=== PATIENT | female | born 1965 | race Caucasian/White ===

== ENCOUNTER 2017-11-27 08:00 | Outpatient (CLI) | payer BC | END 2017-11-27 08:01 | disposition home or self-care (01) | LOC: BICMAMMO 08:00 | PROVIDERS: ATTEND Obstetrics & Gynecology | DX: Z12.31 Encounter for screening mammogram for malignant neoplasm of breast (principal) | CPT/HCPCS: 77066; G0204; G0279 ==

== ENCOUNTER 2018-10-06 11:56 | Outpatient (CLI) | payer BC ==
[2018-10-06 12:57] LABS: Hemoglobin 11.3 g/dL (12.0-16.0); Mean Corpuscular HGB CONC 30.2 g/dL (32.0-36.0); Mean Corpuscular Volume 76.4 fL (78.0-98.0); Mean Platelet Volume 8.8 fL (7.4-10.4); Platelet Count 241 thou/uL (130-400); RBC Distribution Width 14.9 % (11.5-14.5); Red Blood Cell (RBC) Count 4.92 mill/uL (4.20-5.40); White Blood Cell (WBC) Count 7.9 thou/uL (4.8-10.8)
[2018-10-06 13:15] LABS: Anion Gap 11 mmol/L (10-20); BUN (Urea Nitrogen) 11 mg/dL (9.8-20.1); Calc. Creatinine Clearance 0 mL/min (70-130); Calcium 9.3 mg/dL (7.8-10.44); Carbon Dioxide 28 mmol/L (22-29); Chloride 102 mmol/L (98-107); Estimated GFR-MDRD 79; Glucose 112 mg/dL (70-105); Potassium 3.8 mmol/L (3.5-5.1); Sodium 137 mmol/L (136-145)
--- NOTE | 2018-10-06 16:50 | EKG ---
Test Reason : Blood Pressure : / mmHG Vent. Rate : 068 BPM Atrial Rate : 068 BPM P-R Int : 148 ms QRS Dur : 086 ms QT Int : 388 ms P-R-T Axes : 013 083 033 degrees QTc Int : 412 ms Normal sinus rhythm Normal ECG No previous ECGs available Confirmed by DR. Burton LOTT ([id number]) on 10/06/2018 4:49:34 PM Referred By: DILLON Confirmed By:DR. Burton LOTT
== END 2018-10-06 11:57 | disposition home or self-care (01) ==
LOC: LABBT 11:56
PROVIDERS: ATTEND Obstetrics & Gynecology
DX: Z01.818 Encounter for other preprocedural examination (principal); R87.69 Abnormal cytological findings in specimens from other female genital organs
CPT/HCPCS: 80048; 85027; 86850; 86900; 86901; 93005; 93010

== ENCOUNTER 2018-10-07 09:18 | Day surgery (SDC) | payer BC ==
[2018-10-06 12:04] VITALS: BMI 48.6
--- NOTE | 2018-10-07 07:30 | HP ---
HISTORY OF PRESENT ILLNESS: Ms. Decker is a 53-year-old white female, has possibly been menopausal fo r several years, who presented for new patient gynecologic annual exam on 09/11/2018. At that time, she denied any gynecologic symptoms. She does have past medical histories for adult onset diabetes, chronic hypertension, obesity, and acid reflux for which she is followed by Nurse Aris Ernst. Her Pap smear at that visit had negative cervical epithelial cells and HPV screening, but it did have endometrial cells. Due to the findings of the endometrial cells, she underwent a followup transvagi nal ultrasound. At that time, her transvaginal ultrasound showed her to have a very thickened endome trial lining of 24 mm. An endometrial biopsy was then attempted at another visit and she was noted t o have a stenotic os and she was intolerant of the pain associated with dilatation. Therefore, she i s being scheduled for diagnostic hysteroscopy and D&C to further evaluate, showing endometrial cells in a postmenopausal state along with thickened endometrial lining noted on transvaginal ultrasound. PAST SURGICAL HISTORY: section. SOCIAL HISTORY: Smoking history is negative. No significant alcohol use or drug use. CURRENT MEDICATIONS: Lisinopril 20, hydrochlorothiazide 25 mg daily, metformin 500 mg 1 tablet p.o. b.i.d. with meals. PHYSICAL EXAMINATION: GENERAL: She is 5 feet and 3 inches, 275 pounds with a BMI of 48.7, blood pressure 122/72, pulse 87, respirations 18. HEENT: Within normal limits. CHEST: Clear to auscultation. HEART: Regular rate and rhythm. S1, S2 heart sounds. No murmurs, rubs, or gallops. ABDOMEN: Obese, soft, and nontender. PELVIC: Vulva and vagina had no lesions. Cervix had no visible lesions. Uterus was small, nontende r. Adnexa was nontender with no masses. ASSESSMENT: This is a 53-year-old menopausal white female with endometrial cells noted on Pap smear screening. Transvaginal ultrasound evaluation showed thickened endometrial lining of 24 mm and attem pted in office endometrial biopsy, unsuccessful due to stenotic cervix and also patient's pain intole marylin. PLAN: Proceed with diagnostic hysteroscopy, D&C for further evaluation, and thickened endometrium. Risks and benefits of procedure have been discussed in detail. She is set for surgery on 10/07.
[2018-10-07] MEDS ORDERED: Fentanyl 100 MCG/2 ML VIAL ONE (10:43)
[2018-10-07] MEDS ORDERED: Promethazine HCl 25 MG/ML VIAL ONE (12:53)
--- NOTE | 2018-10-07 12:53 | OP ---
DATE OF PROCEDURE: 10/07/2018 PREOPERATIVE DIAGNOSES: 1. A 53-year-old white female, menopausal for several years with noted endometrial cells on recent P ap smear. 2. Thickened endometrial cavity seen on transvaginal ultrasound evaluation. POSTOPERATIVE DIAGNOSES: 1. A 53-year-old white female, menopausal for several years with noted endometrial cells on recent P ap smear. 2. Thickened endometrial cavity seen on transvaginal ultrasound evaluation. PROCEDURE PERFORMED: Diagnostic hysteroscopy with D&C. SURGEON: Estrella Ford M.D. ANESTHESIA: General. ESTIMATED BLOOD LOSS: Less than 10 mL. DISTENSION MEDIA FLUID DEFFICIT: 100 mL of normal saline. PATHOLOGY: Endometrial curettings. FINDINGS: There was a fibrotic irregular appearing lesion seen in the anterior mid portion of the ut erine cavity. Otherwise, uterine cavity appeared atrophic. This area including and all the area of the uterine cavity was sampled with endometrial curettage and sent for final pathology. DISPOSITION: To the recovery room stable. DESCRIPTION OF OPERATIVE PROCEDURE: The patient previously received informed consent in regards to jamie leach. She was taken back to the operating room where she received a general anesthetic agent witho ut complications, placed in the dorsal lithotomy position with the use of James stirrups and prepped and draped in usual sterile fashion. A sidearm speculum was placed in the vagina. The anterior lip of the cervix was grasped. The uterus sounded to 7.5 cm. The cervix was then sequentially dilated t o size 16 Phelps dilator. The diagnostic 5 mm TruClear hysteroscope was then inserted into the uterin e cavity with the previously mentioned findings. Sharp curettage of the whole cavity was then perfor med and this was sent for final pathology. Re-evaluation of the cavity post scraping showed evaluati on and removal of the fibrotic lesion. Once this was confirmed, the tenaculum was then removed. Ten aculum site was noted to be hemostatic and speculum was removed. The patient was awakened from anest hesia and transferred to the recovery room in stable condition.
== END 2018-10-07 14:50 | disposition home or self-care (01) ==
LOC: SDC 09:18
PROVIDERS: ATTEND Obstetrics & Gynecology
PROC: 0UDB7ZX Extraction of Endometrium, Via Natural or Artificial Opening, Diagnostic (ICD-10-PCS; principal; 2018-10-07)
PROC: 0UJD8ZZ Inspection of Uterus and Cervix, Via Natural or Artificial Opening Endoscopic (ICD-10-PCS; principal; 2018-10-07)
DX: N85.02 Endometrial intraepithelial neoplasia [EIN] (principal); N85.8 Other specified noninflammatory disorders of uterus; N88.2 Stricture and stenosis of cervix uteri; E11.9 Type 2 diabetes mellitus without complications; I10 Essential (primary) hypertension; K21.9 Gastro-esophageal reflux disease without esophagitis; E66.9 Obesity, unspecified; Z68.42 Body mass index [BMI] 45.0-49.9, adult; Z79.84 Long term (current) use of oral hypoglycemic drugs; Z79.899 Other long term (current) drug therapy
CPT/HCPCS: 88305; 96374; J2550; J3010

== ENCOUNTER 2018-11-09 11:09 | Outpatient (CLI) | payer BC | END 2018-11-09 11:10 | disposition home or self-care (01) | LOC: BICMAMMO 11:09 | PROVIDERS: ATTEND Nurse Practitioner Family | DX: Z12.31 Encounter for screening mammogram for malignant neoplasm of breast (principal); Z80.3 Family history of malignant neoplasm of breast | CPT/HCPCS: 77063; 77067 ==

== ENCOUNTER 2018-11-13 09:54 | Outpatient (CLI) | payer BC ==
[2018-11-13 11:49] LABS: ALT (SGPT) 22 U/L (8-55); AST (SGOT) 15 U/L (5-34); Alkaline Phosphatase 88 U/L (40-150); Anion Gap 12 mmol/L (10-20); BUN (Urea Nitrogen) 14 mg/dL (9.8-20.1); Bilirubin, Total 0.3 mg/dL (0.2-1.2); Calc. Creatinine Clearance 0 mL/min (70-130); Calcium 9.4 mg/dL (7.8-10.44); Carbon Dioxide 27 mmol/L (22-29); Chloride 103 mmol/L (98-107); Estimated GFR-MDRD 86; Globulin 3.6 g/dL (2.4-3.5); Glucose 135 mg/dL (70-105); Potassium 3.7 mmol/L (3.5-5.1); Protein, Total 7.6 g/dL (6.0-8.3); Sodium 138 mmol/L (136-145)
[2018-11-13 11:57] LABS: #Eosinphils 0.1 thou/uL (0.0-0.7); #Lymphocytes 2.1 thou/uL (1.20-3.40); #Monocytes 0.4 thou/uL (0.11-0.59); #Neutrophils 4.6 thou/uL (1.40-6.50); %Basophils 0.3 % (0.0-1.0); %Eosinophils 1.3 % (0.0-10.0); %Lymphocytes 28.5 % (21.0-51.0); %Monocytes 5.8 % (0.0-10.0); Hemoglobin 11.4 g/dL (12.0-16.0); Hypochromia SLIGHT = 6-15 cells (100X) (0-5/hpf); MDiff Complete? YES; Mean Corpuscular HGB CONC 33.6 g/dL (32.0-36.0); Mean Corpuscular Hemoglobin 24.9 pg (27.0-31.0); Mean Corpuscular Volume 74.2 fL (78.0-98.0); Mean Platelet Volume 9.2 fL (7.4-10.4); Microcytosis MODERATE=15-30 cells (100X) (0-5/hpf); PLT Morphology Comment Appears Adequate; Platelet Count 199 thou/uL (130-400); Polychromasia SLIGHT = 2-3 cells (100X) (0-2/hpf); RBC Distribution Width 14.7 % (11.5-14.5); Red Blood Cell (RBC) Count 4.58 mill/uL (4.20-5.40); White Blood Cell (WBC) Count 7.2 thou/uL (4.8-10.8)
== END 2018-11-13 09:55 | disposition home or self-care (01) ==
LOC: LABBT 09:54
PROVIDERS: ATTEND Obstetrics & Gynecology
DX: Z01.818 Encounter for other preprocedural examination (principal); N85.00 Endometrial hyperplasia, unspecified; N39.3 Stress incontinence (female) (male)
CPT/HCPCS: 80053; 85025; 86850; 86900; 86901; 93005; 93010

== ENCOUNTER 2018-11-13 10:00 | Inpatient (IN) | payer BC ==
--- NOTE | 2018-11-10 14:02 | HP ---
PREOPERATIVE HISTORY AND PHYSICAL SCHEDULED DATE OF SURGERY: 11/16/2018 HISTORY OF PRESENT ILLNESS: Ms. Decker is a 53-year-old white female, G1, P1, prior section, who recently underwent a diagnostic hysteroscopy and D and C on 10/07/2018. The patient underwent the D and C for findings of endometrial cells on a recent screening Pap smear. The Pap smear was otherwise negative with negative HPV. The final pathology on the D and C specimen was significant for focal areas of atypical complex hyperplasia. There was no invasive uterine cancer noted, but the atypical findings were confirmed. Due to this fact, I have elected to proceed with definitive surgical therapy due to the high risk nature of the atypical complex hyperplasia and development of future uterine cancer. The patient also is reporting issues with loss of urine associated with coughing, sneezing, otherwise Valsalva maneuvers. No urgency related urinary incontinence is reported. She has to wear a pad daily for the incontinence issues. PAST MEDICAL HISTORY: Significant for; 1. Adult onset diabetes. 2. Chronic hypertension. 3. Obesity. 4. Acid reflux. PAST SURGICAL HISTORY: Noted section and a recent diagnostic hysteroscopy and D and C. SOCIAL HISTORY: Smoking history is negative. No significant alcohol use or drug use. CURRENT MEDICATIONS: 1. Lisinopril 20 mg daily. 2. Hydrochlorothiazide 25 mg daily. 3. Metformin 500 mg p.o. b.i.d. with meals. PHYSICAL EXAMINATION: VITAL SIGNS: She is 5 feet 3 inches, 275 pounds with a BMI of 48.7. Blood pressure is 122/72, pulse 80, and respirations 18. HEENT: Within normal limits. CHEST: Clear to auscultation. HEART: Regular rate and rhythm. S1 heart sounds. No murmurs, rubs, or gallops. ABDOMEN: Obese, soft, and nontender. Well-healed Pfannenstiel incision noted. PELVIC: Vulva and vagina had no lesions. Cervix had no lesions. Uterus was small and nontender. Adnexa, nontender with no masses. The patient had a hypermobile UV angle of 45 degrees noted with Valsalva and leak of urine was noted with Valsalva. ASSESSMENT: This is a 53-year-old menopausal woman with complex atypical hyperplasia on recent D and C specimen. The patient also is complaining of stress urinary incontinence symptoms and is desiring surgical correction for this. PLAN: Plan is to proceed with robotic total laparoscopic hysterectomy and bilateral salpingo-oophorectomy followed by an Advantage Fit TVT procedure with cystoscopy. Risks and benefits of procedure had been discussed in detail. She is set for surgery on 11/16. Job ID: [id number]
[2018-11-13 10:49] VITALS: BMI 47.8
[2018-11-16] MEDS ORDERED: Gabapentin 300 MG CAP ONE (06:28)
[2018-11-16] MEDS ORDERED: Famotidine/PF 20 mg/2ml Vial ONE (06:29)
[2018-11-16] MEDS ORDERED: CeleCOXIB 100 MG CAP ONE (06:29)
[2018-11-16] MEDS ORDERED: CEFAZOLIN 2 GM/50 ML BAG ONE (06:30)
[2018-11-16] MEDS ORDERED: Fentanyl 250 MCG/5 ML VIAL ONE (06:57)
[2018-11-16] MEDS ORDERED: Bupivacaine HCl 0.5%/Epinephrine 1:200,000/PF 30 ml Vial ONE ×2 (06:58→09:11)
[2018-11-16] MEDS ORDERED: Lidocaine 1% w/Epinephrine 1:100K 30 ML VIAL ONE (09:11)
[2018-11-16] MEDS ORDERED: Promethazine HCl 25 MG/ML VIAL SLOW IVP PRN (10:16)
[2018-11-16] MEDS ORDERED: Ondansetron HCl/PF 4 MG/2 ML Vial IVP PRN (10:16)
[2018-11-16] MEDS ORDERED: Promethazine HCl 25 MG/ML VIAL IM PRN ×2 (10:16→12:22)
[2018-11-16] MEDS ORDERED: Fentanyl 100 MCG/2 ML VIAL ONE ×2 (10:43→12:17)
[2018-11-16] MEDS ORDERED: Promethazine HCl 25 MG/ML VIAL ONE (10:44)
[2018-11-16] MEDS ORDERED: Simethicone Chewable 80 MG TAB PO PRN (12:22)
[2018-11-16] MEDS ORDERED: Ondansetron PF 4 MG/2 ML Vial IVP PRN (12:22)
[2018-11-16] MEDS ORDERED: Morphine 4 MG/ML VIAL SLOW IVP PRN (12:22)
[2018-11-16] MEDS ORDERED: diphenhydrAMINE 25 MG CAP PO PRN (12:22)
[2018-11-16] MEDS ORDERED: Bisacodyl 10 MG SUPP PR PRN (12:22)
[2018-11-16] MEDS ORDERED: Zolpidem Tartrate 5 MG TAB PO PRN (12:22)
[2018-11-16] MEDS ORDERED: traMADol HCl 50 MG TAB PO PRN ×2 (12:22)
[2018-11-16] MEDS: Ketorolac Tromethamine 30 MG/ML VIAL IVP SCH ×2 (13:12→18:33)
[2018-11-16] MEDS: Acetaminophen 1,000 MG in Premix Bag 1 BAG IVPB SCH ×2 (13:41→20:17)
[2018-11-16] MEDS: Lactated Ringer's 1,000 ML IV SCH ×2 (20:37→20:38)
--- NOTE | 2018-11-16 20:37 | OP ---
DATE OF PROCEDURE: 11/16/2018 PREOPERATIVE DIAGNOSES: 1. A 53-year-old white female with atypical complex endometrial hyperplasia. 2. Genuine stress incontinence. PROCEDURES PERFORMED: Robotic total laparoscopic hysterectomy with bilateral salpingo-oophorectomy followed by an Advantage Fit TVT procedure with cystoscopy. DIRECTOR OF MARKETING AND PROMOTIONS SURGEON: Michelle Nunez MD. ANESTHESIA: General. ESTIMATED BLOOD LOSS: 100 mL. COMPLICATIONS: None. COUNTS: Correct x2. ANTIBIOTICS: 2 g Ancef, on-call to the OR. FINDINGS: 1. Normal-appearing bilateral fallopian tubes, uterus, and ovaries. 2. Bladder was watertight to fluid distention and there was no evidence of any bladder mucosal injury visualized postprocedure. 3. Bilateral ureteral peristalsis and with the efflux of urine visualized cystoscopically postprocedure. 4. No evidence of mesh placement through the bladder wall noted postprocedure. DISPOSITION: To Recovery Room stable. DESCRIPTION OF PROCEDURE: The patient previously received informed consent in regard to surgery. Taken back to the operating room where she received a general endotracheal anesthetic agent without complications. She was then placed in the dorsal lithotomy position with the use of James stirrups. She was then prepped and draped in usual sterile fashion. Barraza catheter was placed at this time and a sidearm speculum placed in the vagina. The anterior lip of the cervix was grasped with a single-tooth tenaculum. The uterus sounded to 7.5 cm. A size 6 cm VENICE uterine manipulator with a 3.5 cm cervical cup was placed. The tenaculum and speculum were removed. Attention was then turned to the abdomen where perspective trocar sites were infiltrated with 0.5% Marcaine with epinephrine. A 12-mm supraumbilical incision was made. Veress needle was entered in to the peritoneal cavity. The patient pressure noted to be less than 5, and abdomen was insufflated the patient pressure of 18 for trocar placement. The 12-mm trocar was then placed within the supraumbilical incision and the robotic laparoscope was introduced through the trocar sleeve. Proper entry and placement was confirmed. Additional bilateral lower quadrant 8-mm trocars were placed under laparoscopic guidance along with 11-mm right upper quadrant trocar. The patient was placed in Trendelenburg position and the robot was docked in usual fashion. I proceeded to carry out the surgery from the operative console while my assistants remained at the bedside. The uterus was elevated from the pelvis. There were some omental adhesions to the anterior abdominal wall that were taken down under direct visualization with bipolar fenestrated cautery and monopolar scissors. The left fallopian tube and ovary were identified and my assistant shift supervisor grasped the fimbria of the left tube. The IP ligament was isolated, it was coagulated holding close to the ovary with bipolar fenestrated cautery. This was transected. Serial coagulation of the broad ligament hugging close to the uterus was carried out to the left round ligament was reached. It was coagulated and transected. The anterior leaf of the broad ligament was entered. The vesicouterine peritoneum was then taken down in layering technique under direct visualization sharply dissecting the bladder past the cervical vaginal angle. Intermittent distention of the bladder intraoperatively enabled us to confirm the exact position of the bladder due to the previous sections. The uterine vessels were then skeletonized on the left side of the uterus and coagulated the internal cervical os region. This was then continued and replicated on the right side of the uterus in likewise fashion. The right IP ligament was identified, it was coagulated and transected, and then serial coagulation and transection of the broad ligament again up to the round ligament was reached, which was coagulated and transected and again entering the vesicouterine peritoneum. The bladder was taken down atraumatically in a layering technique in similar fashion with again skeletonization of the right uterine vessels and coagulation internal cervical os region. Once this had been completed, the posterior colpotomy was developed starting at the 6 o'clock position to the 9 o'clock and then 6 o'clock to 3 o'clock. The anterior colpotomy was then completed from 12 o'clock to 3 o'clock and 12 o'clock to 9 o'clock, again coagulating the uterine vessels inside the cervical cup. Hemostasis of the vaginal cuff was confirmed and the specimen was delivered in the vaginal vault by my assistants. The monopolar scissor was traded in for a suzanne needle cryogenic transport driver and this allowed for me to run the vaginal cuff and cauterization of any areas of bleeding was carried out at this time. A STRATAFIX suture was then brought in by assistant shift supervisor and the vaginal cuff was closed in full-thickness starting at the right angle back to the left angle and back toward the midline with good hemostasis of the cuff line. This needle and suture were removed. The pedicles were inspected. Pelvis was irrigated and suctioned. Hemostasis was confirmed. Bilateral ureteral peristalsis was visualized. The robot was then undocked. Excess carbon dioxide gas was released from the abdomen. A deep stitch of 0 Vicryl was placed in a xagbfm-gl-gutlu stitch fashion in the fascial defect in the umbilicus region. The rest of the trocar sites was closed with 4-0 Monocryl subcuticular stitch and Dermabond. Attention was then turned to the Advantage Fit TVT procedure. The patient's vagina was removed as the uterine specimen. The Barraza bulb was palpated and the mid urethra was identified. On the abdomen just at the margin of the symphysis pubis and mid urethra, midpoint was identified and then 2 cm lateral to the midpoint on each side was marked with a marking pen for future trocar exit sites. The mid urethra was then identified. Two Allis clamps were placed superiorly and inferiorly to approximate a 1.5 cm area, where the submucosal vaginal tissue was infiltrated with 1% lidocaine with epinephrine. A 1.5 cm mid urethral vaginal mucosal incision was made with a 15 blade. The edges of the vaginal mucosa were grasped with Allis clamps and Metzenbaum scissors were utilized to tunnel submucosally under into the space of Retzius at the junction of the inferior pubic ramus and symphysis pubis bilaterally. The Barraza diversion catheter was then placed enabling us to deflect the bladder away from the site of trocar injury and this was switched out. The Advantage Fit trocar was then placed through the previously dissected tunnel on the patient's right side, going up through the tunnel and then dropping the handle down placing the trocar with the mesh through the lower abdominal wall at the previously marked sites. The end of the mesh tag was grasped with Marcelina clamp. The trocar was removed. The bladder was then deflected to the opposite side to the patient's right side as the other end, the trocar was placed in the previously dissected tunnel on the patient's left side and under the symphysis pubis dropping the handle of the trocar and hitting the previously marked site. The end of the mesh was grasped with Marcelina clamps. The Barraza deflector was removed and a 30-degree cystoscope was then placed. The bladder was inspected and there was no evidence of any mesh entry or puncture visualized and bilateral ureteral efflux of urine was visualized and noted. The cystoscope was then removed. We then placed a Stallworth scissors underneath the mid urethra region into the mesh and each side was then pulled out, making sure that the mesh was not kinked. It was loosely set, the Stallworth scissors and then the plastic tags were released and pulled through from above by my assistants. The vaginal mucosal defect was then closed with 2-0 interrupted ksfkin-hc-nazen stitches, closing the mucosa over the mesh. A Barraza catheter was placed and clear urine was draining. The vaginal cuff was intact and hemostatic. The patient was awakened from anesthesia and transferred to Recovery Room in stable condition. Job ID: [id number]
[2018-11-16] MEDS ORDERED: Ibuprofen 800 MG TAB PO SCH (21:00)
[2018-11-17] MEDS: Ketorolac Tromethamine 30 MG/ML VIAL IVP SCH ×2 (00:02→05:58)
[2018-11-17] MEDS: Acetaminophen 1,000 MG in Premix Bag 1 BAG IVPB SCH ×2 (02:24→09:17)
[2018-11-17] MEDS: Lactated Ringer's 1,000 ML IV SCH (04:56)
[2018-11-17 07:26] LABS: Mean Corpuscular HGB CONC 31.1 g/dL (32.0-36.0); Mean Corpuscular Hemoglobin 23.5 pg (27.0-31.0); Mean Corpuscular Volume 75.8 fL (78.0-98.0); Mean Platelet Volume 9.1 fL (7.4-10.4); Platelet Count 203 thou/uL (130-400); RBC Distribution Width 14.9 % (11.5-14.5); Red Blood Cell (RBC) Count 4.25 mill/uL (4.20-5.40); White Blood Cell (WBC) Count 10.4 thou/uL (4.8-10.8)
[2018-11-17 11:58] VITALS: BP 133/64; TEMP 97.6
--- NOTE | 2018-11-17 14:46 | DIS ---
DATE OF ADMISSION: 11/16/2018 DATE OF DISCHARGE: 11/17/2018 DATE OF SURGERY: 11/16/2018. DIAGNOSES: 1. Uterine endometrial complex hyperplasia with atypia. 2. Genuine stress incontinence. PROCEDURES PERFORMED: 1. Robotic total laparoscopic hysterectomy with bilateral salpingo-oophorectomy. 2. Advantage Fit TVT with cystoscopy. SUMMARY OF HOSPITAL COURSE: Ms. Decker is a 53-year-old white female with noted biopsy consistent with complex atypical hyperplasia of the endometrium. She also has urinary stress incontinence. She underwent uncomplicated robotic TLH-BSO with Advantage Fit TVT and cystoscopy on 11/16. Postoperatively, the patient has done well. She is ambulating and voiding without difficulty. Hematocrit was 32% on postop day #1. Her postvoid residuals were checked and they were all less than 50 mL, voiding adequate amounts on the morning of postop day #1. She has a followup in 2 and 6 weeks, and pathology is pending at the time of dictation. Prescription will be for tramadol 50 mg q.6 hours p.r.n. pain, fetq-dyb-tamwozg ibuprofen, and Tylenol as needed, and she is to resume her chronic medications for chronic hypertension and hyperlipidemia including metformin 500 b.i.d., and lisinopril-hydrochlorothiazide 20-12.5 mg. Job ID: [id number]
[2018-11-21] MEDS ORDERED: Ibuprofen 800 MG TAB PO SCH (09:00)
== END 2018-11-17 12:55 | disposition home or self-care (01) | DRG 742 ==
LOC: SURG A 11-16 05:44 → 3SE 11-16 12:28
PROVIDERS: ADMIT Obstetrics & Gynecology; ATTEND Obstetrics & Gynecology
PROC: 0UT94ZZ Resection of Uterus, Percutaneous Endoscopic Approach (ICD-10-PCS; principal; 2018-11-16)
PROC: 0UT74ZZ Resection of Bilateral Fallopian Tubes, Percutaneous Endoscopic Approach (ICD-10-PCS; 2018-11-16)
PROC: 0UT24ZZ Resection of Bilateral Ovaries, Percutaneous Endoscopic Approach (ICD-10-PCS; 2018-11-16)
PROC: 0TSD4ZZ Reposition Urethra, Percutaneous Endoscopic Approach (ICD-10-PCS; 2018-11-16)
PROC: 0TJB8ZZ Inspection of Bladder, Via Natural or Artificial Opening Endoscopic (ICD-10-PCS; 2018-11-16)
PROC: 8E0W4CZ Robotic Assisted Procedure of Trunk Region, Percutaneous Endoscopic Approach (ICD-10-PCS; 2018-11-16)
DX: N85.02 Endometrial intraepithelial neoplasia [EIN] (principal); Z68.42 Body mass index [BMI] 45.0-49.9, adult; N39.3 Stress incontinence (female) (male); E11.9 Type 2 diabetes mellitus without complications; Z79.84 Long term (current) use of oral hypoglycemic drugs; E66.9 Obesity, unspecified; K21.9 Gastro-esophageal reflux disease without esophagitis; Z78.0 Asymptomatic menopausal state
CPT/HCPCS: 36415; 36416; 80053; 85025; 85027; 86850; 86900; 86901; 88309; 93005; 93010; C1781; J0131; J0670; J1885; J2001; J2550; J3010; S0028

== ENCOUNTER 2018-12-08 10:23 | Outpatient (CLI) | payer BC ==
--- NOTE | 2018-12-08 13:47 | ULT ---
ULTRASOUND ABDOMEN LIMITED: (RIGHT UPPER QUADRANT) 12/08/2018 HISTORY: Epigastric abdominal pain in a 53-year-old female. FINDINGS: There is limited visualization of the intraabdominal contents due to body habitus. This includes poo r visualization of much of the liver. Hepatic echogenicity is diffusely mildly increased. It is unc ertain whether or not this represents fatty liver. The pancreas has a normal, nonspecific sonographi c appearance. There are multiple gallstones that are poorly visualized. The larger ones are greater than 1 cm in size. Gallbladder wall thickness is 3 to 4 mm. No mention of whether or not there is a sonographic Cheung sign by the wire twister. There is no hydronephrosis of the right kidney. IMPRESSION: 1. Limited visualization of structures due to body habitus. 2. Positive for cholelithiasis. LAM López POS: [facility]
== END 2018-12-08 10:24 | disposition home or self-care (01) ==
LOC: ULT 10:23
PROVIDERS: ATTEND Nurse Practitioner Family
DX: R10.13 Epigastric pain (principal); K80.20 Calculus of gallbladder without cholecystitis without obstruction
CPT/HCPCS: 76705

== ENCOUNTER 2018-12-18 02:49 | Inpatient (IN) | payer BC ==
[2018-12-18 03:18] LABS: Bilirubin Negative (Negative); Blood, Urine Moderate (Negative); Clarity Slightly Cloudy (Clear); Glucose, Urine (Dipstick) Negative (Negative); Leukocyte Small (Negative); Nitrite Negative (Negative); Protein, Urine (Dipstick) Trace mg/dL (Neg-Trace); Specific Gravity, Urine 1.025 (1.005-1.030); Urobilinogen 0.2 mg/dL (0.2-1.0)
[2018-12-18 03:19] LABS: Bacteria/HPF 1+ HPF (None Seen); Crystals/HPF None Seen HPF (Negative); Hyaline Casts/LPF NONE SEEN LPF (0-3 Hyaline); Squamous Epithelial 0-3 HPF (0-3)
[2018-12-18] MEDS ORDERED: Prochlorperazine 10 MG/2 ML VIAL ONE (03:26)
[2018-12-18] MEDS ORDERED: Morphine 4 MG/ML Carpuject ONE (03:26)
[2018-12-18 03:36] LABS: #Basophils 0.1 thou/uL (0.0-0.2); #Eosinphils 0.1 thou/uL (0.0-0.7); #Lymphocytes 1.8 thou/uL (1.20-3.40); #Monocytes 0.4 thou/uL (0.11-0.59); #Neutrophils 5.3 thou/uL (1.40-6.50); %Basophils 0.8 % (0.0-1.0); %Lymphocytes 23.5 % (21.0-51.0); %Monocytes 5.6 % (0.0-10.0); %Neutrophils 69.2 % (42.0-75.0); Hemoglobin 11.5 g/dL (12.0-16.0); MDiff Complete? YES; Mean Corpuscular HGB CONC 32.1 g/dL (32.0-36.0); Mean Corpuscular Hemoglobin 23.5 pg (27.0-31.0); Mean Corpuscular Volume 73.2 fL (78.0-98.0); Mean Platelet Volume 8.9 fL (7.4-10.4); Microcytosis SLIGHT = 6-15 cells (100X) (0-5/hpf); Platelet Count 232 thou/uL (130-400); RBC Distribution Width 15.2 % (11.5-14.5); Red Blood Cell (RBC) Count 4.88 mill/uL (4.20-5.40); White Blood Cell (WBC) Count 7.6 thou/uL (4.8-10.8)
[2018-12-18 03:46] LABS: ALT (SGPT) 36 U/L (8-55); Albumin 4.1 g/dL (3.5-5.0); Alkaline Phosphatase 84 U/L (40-150); Anion Gap 17 mmol/L (10-20); BUN (Urea Nitrogen) 19 mg/dL (9.8-20.1); Bilirubin, Total 0.4 mg/dL (0.2-1.2); Calc. Creatinine Clearance 0 mL/min (70-130); Calcium 9.6 mg/dL (7.8-10.44); Carbon Dioxide 21 mmol/L (22-29); Chloride 102 mmol/L (98-107); Estimated GFR-MDRD 64; Globulin 3.8 g/dL (2.4-3.5); Glucose 182 mg/dL (70-105); Lipase 31 U/L (8-78); Potassium 3.8 mmol/L (3.5-5.1); Protein, Total 7.9 g/dL (6.0-8.3); Sodium 136 mmol/L (136-145)
[2018-12-18 03:48] LABS: AST (SGOT) 29 U/L (5-34)
[2018-12-18] MEDS ORDERED: Ondansetron PF 4 MG/2 ML Vial ONE ×2 (04:46→16:21)
[2018-12-18] MEDS ORDERED: Piperacillin/Tazobactam 3.375 GM VIAL ONE (05:10)
[2018-12-18] MEDS ORDERED: Sodium Chloride 0.9% 100 ML ONE (05:12)
[2018-12-18] MEDS ORDERED: Ondansetron ODT 4 MG TAB PO PRN (06:11)
[2018-12-18] MEDS ORDERED: Ondansetron PF 4 MG/2 ML Vial IVP PRN ×2 (06:11→15:33)
--- NOTE | 2018-12-18 08:23 | ULT ---
PRELIMINARY REPORT/[facility]/EMERGENTY AFTER-HOURS PROCEDURE US Abdomen Limited, Right Upper Quadrant EXAM DATE/TIME: 12/18/2018 3:50 AM CLINICAL HISTORY: 53 years old, female; Pain; Abdominal pain; Other: Epigastric pain that radiates to back TECHNIQUE: Real-time ultrasound of the abdomen with image documentation. Examination was focused on the right up per quadrant. COMPARISON: No relevant prior studies available. FINDINGS: Liver: Hepatic steatosis. Gallbladder: Cholelithiasis, including a nonmobile stone at the neck. Gallbladder bolivar not optimally visualized on this study; however, there is suggestion of mild wall thickening. No pericholecystic f luid. Sonographic Cheung's sign is positive. Common bile duct: Normal. No stones. No dilation. Pancreas: Visualized pancreas is unremarkable. Right kidney: Normal. No mass. No hydronephrosis. IMPRESSION: Cholelithiasis, including a nonmobile stone at the neck suggestion of mild gallbladder wall thickenin g and positive sonographic Cheung sign, compatible with acute cholecystitis Thank you for allowing us to participate in the care of your patient. Dictated and Authenticated by: Olivier Garcia MD 12/18/2018 4:21 AM Central Time ([place] & [place]) FINAL REPORT SONOGRAM RIGHT UPPER QUADRANT: DATE: 12/18/2018. TIME: Performed on a emergency basis at 0351 hours. HISTORY: Right upper quadrant pain. FINDINGS: Agree with the preliminary report by Dr. Garcia from [facility]. Cholelithiasis is confirmed . Positive sonographic Cheung's sign and gallbladder wall thickening are evident of acute cholecysti tis. Common duct is not dilated. POS: [facility]
[2018-12-18] MEDS: Sodium Chloride 0.9% 1,000 ML IV SCH ×3 (08:41→19:50)
[2018-12-18 08:43] VITALS: BMI 46.0
--- NOTE | 2018-12-18 09:38 | HP ---
CHIEF COMPLAINT: Right upper quadrant abdominal pain. HISTORY: The patient is a 53-year-old female, who has a several month history of right upper quadrant pain, intermittent in nature. Ultrasound showed cholelithiasis. She has seen Dr. Hoffman for anticipated laparoscopic cholecystectomy; however, last night, she had a severe episode and came to the emergency room with nausea, vomiting, and pain radiating to the back. PAST MEDICAL HISTORY: Significant for morbid obesity, diabetes mellitus, and hypertension. PAST SURGICAL HISTORY: About 30 days ago she had a laparoscopic assisted hysterectomy for endometriosis. MEDICATIONS: 1. Metformin 1000 mg daily. 2. Lisinopril 20 mg daily. 3. Hydrochlorothiazide. ALLERGIES: NO KNOWN DRUG ALLERGIES. FAMILY HISTORY: Noncontributory. SOCIAL HISTORY: She is . 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 No tobacco. No alcohol. PHYSICAL EXAMINATION: VITAL SIGNS: Temperature 97.7, pulse is 92, blood pressure 116/68. GENERAL: She is a morbidly obese female, awake, alert, does not appear to be in any distress. HEENT: There is no jaundice. LUNGS: Clear. HEART: Regular rate and rhythm. ABDOMEN: Obese and soft. She has really no significant tenderness. She has some healing laparoscopic incisions at the umbilicus and bilateral at that same level. EXTREMITIES: Unremarkable. LABORATORY DATA: Her white count is 7.6, hemoglobin and hematocrit of 11 and 35, platelet count of 232. Electrolytes are fine. Elevated glucose at 182. Liver function tests normal. Urinalysis showed 11 to 20 red cells, 7 to 10 white cells. They repeated the ultrasound. The ultrasound showed cholelithiasis with an impacted stone at the neck with some mild gallbladder wall thickening and a positive sonographic Cheung's, consistent with acute cholecystitis. ASSESSMENT: Acute cholecystitis. PLAN: Laparoscopic cholecystectomy. CONSENT: I have discussed the planned procedure as well as risk of bleeding, infection, injury to bile duct and bowel, need to open. She understands and gives informed consent. Job ID: [id number]
[2018-12-18] MEDS ORDERED: cefOXitin Sodium/Dextrose,Iso 2 GM in Premix Bag 1 BAG IVPB SCH (09:45)
[2018-12-18] MEDS ORDERED: Bupivacaine HCl 0.25%/Epi 0.0005/PF 10 ML VIAL FS ONE ×2 (14:21→14:28)
[2018-12-18] MEDS ORDERED: Fentanyl 100 MCG/2 ML VIAL ONE ×2 (14:32→15:49)
[2018-12-18] MEDS ORDERED: Famotidine/PF 20 mg/2ml Vial ONE (14:32)
[2018-12-18] MEDS ORDERED: Ondansetron HCl/PF 4 MG/2 ML Vial IVP PRN (15:09)
[2018-12-18] MEDS ORDERED: Promethazine HCl 25 MG/ML VIAL SLOW IVP PRN (15:09)
[2018-12-18] MEDS ORDERED: Promethazine HCl 25 MG/ML VIAL IM PRN ×2 (15:09→15:33)
[2018-12-18] MEDS ORDERED: Meperidine HCl/PF 25 MG/ML VIAL SLOW IVP PRN (15:09)
[2018-12-18] MEDS ORDERED: Calcium Carbonate 500 MG ChewTAB PO PRN (15:33)
[2018-12-18] MEDS ORDERED: Dextrose 50% Abboject 50 ML SYRINGE SLOW IVP PRN (15:33)
[2018-12-18] MEDS ORDERED: Mag-Al 1200 mg/1200 mg/30 ML UDCUP PO PRN (15:33)
[2018-12-18] MEDS ORDERED: hydrALAZINE 20 MG/ML VIAL SLOW IVP PRN (15:33)
[2018-12-18] MEDS ORDERED: Morphine 2 MG/ML SYRINGE SLOW IVP PRN (15:33)
[2018-12-18] MEDS ORDERED: HYDROcodone/Acetaminophen 10/325 mg Tablet PO PRN ×2 (15:33)
[2018-12-18] MEDS ORDERED: Dextrose 5% in Water 1,000 ML IV PRN (15:33)
[2018-12-18] MEDS ORDERED: HumaLOG 300 UNITS/3 ML VIAL SC PRN (15:33)
[2018-12-18] MEDS ORDERED: Morphine 4 MG/ML VIAL SLOW IVP PRN (15:33)
[2018-12-18] MEDS ORDERED: PROPOFOL 200 MG/20 ML VIAL ONE (16:21)
[2018-12-18] MEDS ORDERED: Dexamethasone 20 MG/5 ML VIAL ONE (16:21)
[2018-12-18] MEDS ORDERED: Ketorolac Tromethamine 30 MG/ML VIAL ONE (16:21)
[2018-12-18] MEDS ORDERED: Rocuronium Bromide 10 MG/ML (10ML VIAL) ONE (16:21)
[2018-12-18] MEDS ORDERED: Glycopyrrolate 0.2 MG/ML 5 ML SYRINGE ONE (16:21)
[2018-12-18] MEDS ORDERED: Lidocaine 1% PF 5 ML VIAL ONE (16:21)
--- NOTE | 2018-12-18 17:42 | OP ---
DATE OF PROCEDURE: 12/18/2018 PREOPERATIVE DIAGNOSIS: Acute cholecystitis. PROCEDURE PERFORMED: Laparoscopic cholecystectomy. INDICATIONS: The patient is a 53-year-old female, who has been having episodic right upper quadrant pain, admitted with much worse episode. Ultrasound showed cholelithiasis with thickened gallbladder wall. FINDINGS: Large stones, small caliber duct. DESCRIPTION OF PROCEDURE: After informed consent was obtained, the patient was taken to the operating room, given general endotracheal anesthesia, placed in supine position. Abdomen was prepped and draped in usual fashion. Local anesthesia infiltrated subcutaneously and deep. A supraumbilical incision was performed. Subcu divided sharply. The fascia was grasped with two stay sutures of 0 Vicryl placed in each side of midline. Midline incised. Digital palpation revealed no local adhesions. A blunt 10/12 mm trocar inserted. Pneumoperitoneum was created to a pressure of 15 mmHg and under direct vision, three 5-mm ports were placed subcostally. The gallbladder was grasped and advanced superiorly. The peritoneum lysed distally to the dissect out the cystic duct, artery, and critical view. These were triply ligated and divided with hemoclips. The gallbladder removed from its fossa utilizing electrocautery, placed in endosac, removed from the abdomen in the endosac. Hemostasis assured. Trocars and retractors removed. The fascia was closed with interrupted 0 Vicryl suture. The skin closed with interrupted 4-0 Rapide. Dermabond applied. The patient tolerated the procedure well, transferred to Recovery in good condition. Sponge and needle count verified correct x2. Job ID: [id number]
[2018-12-18] MEDS ORDERED: Ketorolac Tromethamine 30 MG/ML VIAL IVP SCH (18:00)
[2018-12-18] MEDS: Famotidine/PF 20 mg/2ml Vial SLOW IVP SCH (20:50)
[2018-12-18] MEDS: Ketorolac Tromethamine 30 MG/ML VIAL IVP SCH (20:50)
[2018-12-18] MEDS: Famotidine 20 MG TAB PO SCH (21:07)
[2018-12-19] MEDS: Sodium Chloride 0.9% 1,000 ML IV SCH ×2 (02:31→08:19)
[2018-12-19] MEDS: Ketorolac Tromethamine 30 MG/ML VIAL IVP SCH ×2 (02:57→08:23)
[2018-12-19 06:56] LABS: #Lymphocytes 1.3 thou/uL (1.20-3.40); #Monocytes 0.4 thou/uL (0.11-0.59); #Neutrophils 7.2 thou/uL (1.40-6.50); %Eosinophils 0.1 % (0.0-10.0); %Lymphocytes 14.2 % (21.0-51.0); %Monocytes 4.5 % (0.0-10.0); %Neutrophils 81.2 % (42.0-75.0); Hemoglobin 9.6 g/dL (12.0-16.0); Mean Corpuscular HGB CONC 31.6 g/dL (32.0-36.0); Mean Corpuscular Hemoglobin 24.1 pg (27.0-31.0); Mean Corpuscular Volume 76.4 fL (78.0-98.0); Mean Platelet Volume 8.9 fL (7.4-10.4); Platelet Count 192 thou/uL (130-400); RBC Distribution Width 14.8 % (11.5-14.5); Red Blood Cell (RBC) Count 3.98 mill/uL (4.20-5.40); White Blood Cell (WBC) Count 8.9 thou/uL (4.8-10.8)
[2018-12-19 07:09] LABS: ALT (SGPT) 49 U/L (8-55); AST (SGOT) 37 U/L (5-34); Albumin 3.5 g/dL (3.5-5.0); Alkaline Phosphatase 71 U/L (40-150); Anion Gap 12 mmol/L (10-20); BUN (Urea Nitrogen) 8 mg/dL (9.8-20.1); Bilirubin, Total 0.4 mg/dL (0.2-1.2); Calc. Creatinine Clearance 173 mL/min (70-130); Calcium 8.6 mg/dL (7.8-10.44); Carbon Dioxide 23 mmol/L (22-29); Chloride 109 mmol/L (98-107); Estimated GFR-MDRD 86; Globulin 2.8 g/dL (2.4-3.5); Glucose 132 mg/dL (70-105); Protein, Total 6.3 g/dL (6.0-8.3); Sodium 140 mmol/L (136-145)
[2018-12-19] MEDS: Famotidine 20 MG TAB PO SCH (08:22)
[2018-12-19] MEDS: Famotidine/PF 20 mg/2ml Vial SLOW IVP SCH (08:28)
[2018-12-19] MEDS ORDERED: Enoxaparin Sodium 40 MG/0.4 ML SYRINGE SC SCH (09:00)
--- NOTE | 2018-12-19 11:41 | PRG ---
DATE OF SERVICE: 12/19/2018 SUBJECTIVE: Antoinette Decker is doing well today. She is status last laparoscopic cholecystectomy. She is tolerating her diet. She has ambulated. OBJECTIVE: VITAL SIGNS: Temperature 98.1 degrees, pulse 79, blood pressure 153/84. LUNGS: Clear to auscultation. CARDIAC: Regular rate and rhythm without murmur or gallop. ABDOMEN: Soft, nontender. Surgical wounds well healed. LABORATORY DATA: CBC; hemoglobin 9.6, white count 8.9. Liver function tests are normal this morning. ASSESSMENT AND PLAN: Status post laparoscopic cholecystectomy, doing well. We would plan discharge home. Dr. Wall has provided Brush 10/325 p.r.n. pain. I have advised her to take Tylenol, Advil as able. No use of Brush 10 is needed. He also prescribed Zofran #10 q.4 hours p.r.n. nausea. The patient will avoid lifting over 25 to 30 pounds for 4 weeks. She will follow up with Dr. Wall's office. Job ID: [id number]
--- NOTE | 2018-12-19 11:46 | DIS ---
DATE OF ADMISSION: 12/18/2018 DATE OF DISCHARGE: 12/19/2018 DISCHARGE DIAGNOSES: Cholecystitis, cholelithiasis. PROCEDURES: Laparoscopic video cholecystectomy after an emergency room ultrasound. HISTORY: A 53-year-old female with 1-month history of right upper quadrant pain. Ultrasound reveals cholelithiasis. She saw Dr. Hoffman for a laparoscopic cholecystectomy. However, she presented with emergency room and was admitted while Dr. Mirza was on-call and the patient underwent laparoscopic video cholecystectomy. Observed overnight, tolerated diet and discharged home. To resume her home medication of metformin, lisinopril, and hydrochlorothiazide. Follow up with Dr. Wall in 2 to 3 weeks. Job ID: [id number]
[2018-12-19 11:50] VITALS: BP 133/75; TEMP 98
== END 2018-12-19 11:50 | disposition home or self-care (01) | DRG 418 ==
LOC: SCSER 02:49 → SURG A 04:35
PROVIDERS: ADMIT Surgery; ATTEND Surgery
PROC: 0FT44ZZ Resection of Gallbladder, Percutaneous Endoscopic Approach (ICD-10-PCS; principal; 2018-12-18)
DX: K80.00 Calculus of gallbladder with acute cholecystitis without obstruction (principal); Z68.42 Body mass index [BMI] 45.0-49.9, adult; E66.01 Morbid (severe) obesity due to excess calories; E11.9 Type 2 diabetes mellitus without complications; I10 Essential (primary) hypertension; Z79.84 Long term (current) use of oral hypoglycemic drugs; Z79.899 Other long term (current) drug therapy; Z87.891 Personal history of nicotine dependence
CPT/HCPCS: 36415; 76705; 80053; 81003; 81015; 83690; 85025; 86850; 86900; 86901; 88304; 96365; 96366; 96375; J0131; J0780; J1100; J1885; J2001; J2270; J2405; J2543; J2704; J3010; J7050; S0028

== ENCOUNTER 2018-12-31 14:23 | Outpatient (CLI) | payer BC ==
--- NOTE | 2018-12-31 15:36 | RAD ---
CHEST TWO VIEWS: 12/31/18 HISTORY: Endometrial cancer. FINDINGS: The cardiac silhouette and pulmonary vasculature are unremarkable. Mediastinum is midline. No conflue nt air space consolidation, pneumothorax, or pleural fluid. IMPRESSION: No active cardiopulmonary abnormalities are demonstrated. POS: [facility]
== END 2018-12-31 14:24 | disposition home or self-care (01) ==
LOC: BICRAD 14:23
PROVIDERS: ATTEND Obstetrics & Gynecology Gynecologic Oncology
DX: C54.1 Malignant neoplasm of endometrium (principal)
CPT/HCPCS: 71046

== ENCOUNTER 2019-11-10 08:54 | Outpatient (CLI) | payer BC ==
--- NOTE | 2019-11-10 10:01 | MMO ---
Bilateral MAMMO Bilat Screen [facility]. CLINICAL HISTORY: Patient is 54 years old and is seen for screening. The patient has the following family history of breast cancer: maternal grandmother. The patient has no personal history of cancer. VIEWS: The views performed were: bilateral craniocaudal with tomosynthesis and bilateral mediolateral oblique with tomosynthesis. FILMS COMPARED: The present examination has been compared to prior imaging studies performed at [facility] on 10/30/2015, 11/06/2016, 11/27/2017 and 11/09/2018. This study has been interpreted with the assistance of computer-aided detection. MAMMOGRAM FINDINGS: The breasts are almost entirely fat. There are no suspicious masses, suspicious calcifications, or new areas of architectural distortion. IMPRESSION: THERE IS NO MAMMOGRAPHIC EVIDENCE OF MALIGNANCY. A ROUTINE FOLLOW-UP MAMMOGRAM IN 1 YEAR IS RECOMMENDED. THE RESULTS OF THIS EXAM WERE SENT TO THE PATIENT. ACR BI-RADS Category 1 - Negative MAMMOGRAPHY NOTE: 1. A negative mammogram report should not delay a biopsy if a dominant of clinically suspicious mass is present. 2. Approximately 10% to 15% of breast cancers are not detected by mammography. 3. Adenosis and dense breasts may obscure an underlying neoplasm. Reported by: BERENICE PATRICK MD Electonically Signed: [id number]
== END 2019-11-10 08:55 | disposition home or self-care (01) ==
LOC: BICMAMMO 08:54
PROVIDERS: ATTEND Obstetrics & Gynecology
DX: Z12.31 Encounter for screening mammogram for malignant neoplasm of breast (principal)
CPT/HCPCS: 77063; 77067

== ENCOUNTER 2020-02-03 09:58 | Outpatient (CLI) | payer BC ==
--- NOTE | 2020-02-03 11:35 | RAD ---
RADIOGRAPH CHEST 2 VIEWS: DATE: 02/03/2020 HISTORY: 54-year-old female with: Personal history of malignant neoplasm of uterine body. Surveillance study. FINDINGS: The lungs are clear. The cardiomediastinal silhouette and hilar shadows are normal. There is no pleur al effusion. The osseous structures appear normal. There is no pneumothorax. IMPRESSION: Normal. jn [] POS: [facility]
== END 2020-02-03 09:59 | disposition home or self-care (01) ==
LOC: BICRAD 09:58
PROVIDERS: ATTEND Obstetrics & Gynecology
DX: Z08 Encounter for follow-up examination after completed treatment for malignant neoplasm (principal); Z85.42 Personal history of malignant neoplasm of other parts of uterus
CPT/HCPCS: 71046

== ENCOUNTER 2022-06-06 11:43 | Outpatient (CLI) | payer BC ==
[2022-06-06 12:46] LABS: #Eosinphils 0.1 10x3/uL (0.0-0.5); #Monocytes 0.4 10x3/uL (0.0-1.1); #Neutrophils 3.7 10x3/uL (1.5-8.4); %Basophils 0.3 % (0.0-2.0); %Lymphocytes 30.1 % (18.0-47.0); %Monocytes 6.2 % (0.0-10.0); %Neutrophils 62.2 % (40.0-75.0); Hemoglobin 14.2 g/dL (12.0-15.5); Mean Corpuscular HGB CONC 34.9 g/dL (32.0-36.0); Mean Corpuscular Hemoglobin 29.4 pg (27.0-33.0); Mean Corpuscular Volume 84.3 fl (81.6-98.3); Mean Platelet Volume 10.9 fl (7.4-10.4); Platelet Count 217 10x3/uL (150-450); RBC Distribution Width 13.1 % (11.5-14.5); Red Blood Cell (RBC) Count 4.83 10x6/uL (3.90-5.03)
[2022-06-06 13:12] LABS: ALT (SGPT) 41 U/L (8-55); AST (SGOT) 23 U/L (5-34); Albumin 4.3 g/dL (3.5-5.0); Alkaline Phosphatase 69 U/L (40-110); Anion Gap 14 mmol/L (10-20); BUN (Urea Nitrogen) 13 mg/dL (9.8-20.1); Bilirubin, Total 0.5 mg/dL (0.2-1.2); Calc. Creatinine Clearance 0 mL/min (70-130); Calcium 9.3 mg/dL (7.8-10.44); Carbon Dioxide 27 mmol/L (22-29); Chloride 103 mmol/L (98-107); Estimated GFR 99; Glucose 134 mg/dL (70-105); Potassium 3.7 mmol/L (3.5-5.1); Protein, Total 7.3 g/dL (6.0-8.3); Sodium 140 mmol/L (136-145)
== END 2022-06-06 11:44 | disposition home or self-care (01) ==
LOC: LABBT 11:43
PROVIDERS: ATTEND Surgery
DX: Z01.818 Encounter for other preprocedural examination (principal); C50.912 Malignant neoplasm of unspecified site of left female breast
CPT/HCPCS: 80053; 85025; 93005; 93010

== ENCOUNTER 2022-06-11 06:12 | Day surgery (SDC) | payer BC ==
[2022-06-11] MEDS ORDERED: Lidocaine 2% PF 5 ML VIAL ONE (11:22)
[2022-06-11] MEDS ORDERED: Bupivacaine PF 0.5% 30 ML VIAL ONE (11:22)
[2022-06-11] MEDS ORDERED: Lidocaine 1% w/Epinephrine 1:100K 20 ML VIAL ONE (11:22)
[2022-06-11] MEDS ORDERED: Isosulfan Blue 50 MG/5 ML VIAL ONE (11:22)
[2022-06-11] MEDS ORDERED: Promethazine HCl 25 MG/ML VIAL ONE ×2 (12:15→14:34)
[2022-06-11] MEDS ORDERED: fentaNYL Citrate/PF 100 MCG/2 ML SYRINGE ONE (12:15)
[2022-06-11] MEDS ORDERED: CEFAZOLIN 2 GM VIAL ONE (12:16)
[2022-06-11] MEDS ORDERED: Sodium Chloride 0.9% 100 ML ONE (12:16)
[2022-06-11] MEDS ORDERED: Ketorolac Tromethamine 30 MG/ML VIAL ONE (12:26)
[2022-06-11] MEDS ORDERED: Lidocaine 1% PF 5 ML VIAL ONE (12:26)
[2022-06-11] MEDS ORDERED: Ondansetron PF 4 MG/2 ML Vial ONE ×2 (12:26→14:17)
[2022-06-11] MEDS ORDERED: PROPOFOL 200 MG/20 ML VIAL ONE (12:26)
[2022-06-11] MEDS ORDERED: Fentanyl 100 MCG/2 ML VIAL ONE (14:17)
[2022-06-11] MEDS ORDERED: Midazolam HCl 2 mg/2 ml Vial ONE (15:32)
[2022-06-11] MEDS ORDERED: Dexamethasone 4 mg/ml Vial ONE (15:32)
[2022-06-11] MEDS ORDERED: HYDROcodone/Acetaminophen 5/325 mg Tablet ONE (16:38)
== END 2022-06-11 17:06 | disposition home or self-care (01) ==
LOC: NM 06:12
PROVIDERS: ATTEND Surgery
PROC: 07B60ZX Excision of Left Axillary Lymphatic, Open Approach, Diagnostic (ICD-10-PCS; principal; 2022-06-11)
PROC: 0HBU0ZZ Excision of Left Breast, Open Approach (ICD-10-PCS; principal; 2022-06-11)
DX: C50.412 Malignant neoplasm of upper-outer quadrant of left female breast (principal); E11.9 Type 2 diabetes mellitus without complications; I10 Essential (primary) hypertension; E78.5 Hyperlipidemia, unspecified; K21.9 Gastro-esophageal reflux disease without esophagitis; F17.290 Nicotine dependence, other tobacco product, uncomplicated; E66.01 Morbid (severe) obesity due to excess calories; Z68.41 Body mass index [BMI] 40.0-44.9, adult; Z17.0 Estrogen receptor positive status [ER+]; Z79.84 Long term (current) use of oral hypoglycemic drugs; Z79.899 Other long term (current) drug therapy; Z88.5 Allergy status to narcotic agent
CPT/HCPCS: 19281; 76098; 78195; 88307; A9541; J0690; J1100; J1885; J2001; J2250; J2405; J2550; J2704; J3010; J3490; Q9968; S0020

== ENCOUNTER 2022-07-16 12:30 | Outpatient (CLI) | payer BC ==
[2022-07-16 15:45] LABS: #Eosinphils 0.1 10x3/uL (0.0-0.5); #Monocytes 0.5 10x3/uL (0.0-1.1); #Neutrophils 3.5 10x3/uL (1.5-8.4); %Basophils 0.5 % (0.0-2.0); %Eosinophils 1.2 % (0.0-6.0); %Lymphocytes 36.2 % (18.0-47.0); %Neutrophils 54.9 % (40.0-75.0); Hemoglobin 13.9 g/dL (12.0-15.5); Mean Corpuscular HGB CONC 34.5 g/dL (32.0-36.0); Mean Corpuscular Hemoglobin 29.5 pg (27.0-33.0); Mean Corpuscular Volume 85.6 fl (81.6-98.3); Mean Platelet Volume 11.4 fl (7.4-10.4); Platelet Count 198 10x3/uL (150-450); RBC Distribution Width 12.9 % (11.5-14.5); Red Blood Cell (RBC) Count 4.71 10x6/uL (3.90-5.03); White Blood Cell (WBC) Count 6.4 10x3/uL (3.5-10.5)
[2022-07-16 16:13] LABS: ALT (SGPT) 33 U/L (8-55); AST (SGOT) 22 U/L (5-34); Albumin 4.3 g/dL (3.5-5.0); Alkaline Phosphatase 72 U/L (40-110); Anion Gap 14 mmol/L (10-20); BUN (Urea Nitrogen) 15 mg/dL (9.8-20.1); Bilirubin, Total 0.5 mg/dL (0.2-1.2); Calc. Creatinine Clearance 0 mL/min (70-130); Calcium 9.4 mg/dL (7.8-10.44); Carbon Dioxide 29 mmol/L (22-29); Chloride 102 mmol/L (98-107); Estimated GFR 100; Globulin 2.9 g/dL (2.4-3.5); Glucose 117 mg/dL (70-105); Potassium 4.1 mmol/L (3.5-5.1); Protein, Total 7.2 g/dL (6.0-8.3); Sodium 141 mmol/L (136-145)
== END 2022-07-16 12:31 | disposition home or self-care (01) ==
LOC: LABBT 12:30
PROVIDERS: ATTEND Surgery
DX: Z01.818 Encounter for other preprocedural examination (principal); C50.919 Malignant neoplasm of unspecified site of unspecified female breast
CPT/HCPCS: 80053; 85025; 93005; 93010